=== PATIENT | male | born 1955 | race Caucasian/White ===

== ENCOUNTER 2024-05-06 10:59 | Outpatient (AMB) | payer MEDICARE, OTHER, SELFPAY ==
--- NOTE | 2024-05-06 11:06 | HO.SPINEOV ---
Intake Visit Reasons: LBP Intake Note: Mr. Vidales is here today c/o Low back pain. 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 HPI: This 69-year-old male noticed progressive episodes of severe back pain since 3 years. 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 Other looks sitting factors are bending squatting or doing daily chores. He denies radiating pain down his legs. He tried several courses of physical therapy without success. Usually the pain goes away in a few days. The pain is located in the lumbar region. He saw Dr. Avila, we thought it was SI joint related. He unsuccessfully tried an SI joint belt. This actually made the pain worse. PMH: Hypertension, GERD, large prostate Medications: Pepcid, omeprazole, gabapentin, lisinopril, aspirin and multivitamins Allergies: Levofloxacin, iodine Social history: Nonsmoker Physical Exam: Pleasant male. There are no abnormalities on exam today. He is able to move his lumbar spine all directions without difficulties. There are no neurological deficits for motor sensation or reflexes Radiological Studies: MRI done at [facility] basically shows a normal spine. He has excellent disc height for his age. There is minimal L4-5 stenosis. Impression/Plan: This patient has a typical story of lumbago with episodic severe back pain. Unfortunately, there is no treatment for this as far as I know. Surgery is definitely not indicated in this patient. I reviewed the imaging in detail with the patient and told him my diagnosis. I discharged him from further follow-up. Thank you for allowing me to participate in your patients care. total time spent was 30 minutes in counseling ,coordination of plan, personal review of imaging, surgical decision making and subsequent plan Magdaleno Garcia MD, PhD Spine Fellowship Trained Neurosurgeon Director, [facility] Coding Level of Care Code Est Pt Level 3 (18220) Diagnoses Lumbago syndrome M54.50
== END 2024-05-06 11:34 | disposition home or self-care (01) ==
PROVIDERS: PCP Family Medicine; Visit Provider Neurological Surgery
DX: M54.50 Low back pain, unspecified (principal)
CPT/HCPCS: 99213

== ENCOUNTER → 2024-05-06 10:59 | Outpatient (BNVA) | payer MEDICARE, OTHER, SELFPAY | PROVIDERS: PCP Family Medicine; Visit Provider Neurological Surgery | DX: M54.50 Low back pain, unspecified (principal) | CPT/HCPCS: 99212 ==

== ENCOUNTER 2024-05-06 12:33 | Outpatient (REF) | payer MEDICARE, OTHER, SELFPAY | END 2024-05-06 12:34 | disposition home or self-care (01) | LOC: CF 12:33 | DX: Z13.89 Encounter for screening for other disorder (principal) ==